=== PATIENT | female | born 1995 | race African-American/Black ===

== ENCOUNTER 2025-05-26 18:11 | Emergency (ER) | payer SELFPAY ==
--- NOTE | 2025-05-26 18:12 | ED.ABDPAIN ---
HPI - Abdominal Pain General Chief Complaint: Abdominal Pain Stated Complaint: Abdominal Pain Time Seen by Provider: 05/26/25 18:22 Source: patient, RN notes reviewed and old records reviewed Mode of arrival: ambulatory Limitations: no limitations History of Present Illness HPI narrative: 29-year-old female presents to the [facility] with lower abdominal pain that has been increasing over the last week. Last menstrual period was April 23. Reports that she has taken 2 home test which she reports is negative. Patient denies any frequency urgency or burning. Has taken Tylenol. Reports that when she eats the pain does increase. Reports nausea without vomiting. Last bowel movement 1 day ago Onset (ago): week(s) (1) Treatments prior to arrival: other (Tylenol) Related Data Home Medications ?Medication ?Instructions ?Recorded ?Confirmed ?Last Taken ?Type No Home Medications 05/26/25 05/26/25 Unknown History Allergies Allergy/AdvReac Type Severity Reaction Status Date / Time No Known Allergies Allergy Verified 05/26/25 18:27 Review of Systems Review of Systems: All systems reviewed & are unremarkable except as noted in HPI and below Constitutional: Constitutional: Reports no additional constitutional complaints ENT: Reports system reviewed and no additional complaints, except as documented Cardiovascular: Cardiovascular: Reports no additional cardiovascular complaints, Denies chest pain and Denies dyspnea Respiratory: Respiratory: Reports no additional respiratory complaints, Denies chest congestion, Denies cough and Denies dyspnea Gastrointestinal: Gastrointestinal: Reports as per HPI, Reports abdominal pain, Reports nausea and Denies vomiting Genitourinary: Genitourinary: Reports no additional female genitourinary complaints Musculoskeletal: Musculoskeletal: Reports no additional musculoskeletal complaints Integumentary/Breasts: Skin/Breast: Reports system reviewed and no additional complaints, except as docu PMFSH Comments At the time of my signature, I reviewed and agree with the nursing past medical, surgical, social, and family history. There is no relevant family history pertinent to the patient complaint. Exam Const: General: cooperative, healthy appearing, comfortable, no acute distress, well developed, alert and well nourished Nutritional Appearance: well nourished Orientation/consciousness: patient oriented x3 Limitations: no limitations HENMT: Head: normal to inspection Mouth: Yes Normal oral and palatal mucosa present, Yes lip normal, Yes tongue normal and Yes moist mucous membranes Eyes: General: appearance normal, both eyes and all related structures Alignment and Position: alignment normal Neck: Neck: normal visual inspection, full ROM, no lymphadenopathy and no meningeal signs Chest: Chest palpation & inspection: normal inspection of the chest Resp: Effort & Inspection: normal respiratory effort and able to speak in complete sentences Auscultation: clear to auscultation bilaterally, no crackles, no rales, no rhonchi and no wheezes Cardio: Rate: regular rate GI: GI Palp: No abdominal tenderness and Yes Soft to palpation Auscultation: normal bowel sounds Skin: General skin exam: normal color and no rashes or lesions noted Neuro: General: patient oriented x3, gait normal, moves all extremities and no meningeal signs Cognition (Neuro): normal cognition Speech: normal speech Gait exam (Neuro): Normal gait present Extrem: General: normal to inspection, full ROM, capillary refill normal and normal gait Psych: Appearance: grossly normal and well kempt Mental Status: mental status grossly normal Speech and movement: Normal speech and movement present and Clear speech present Affect: normal affect Attitude: cooperative Course Course Level of Care: Express Care Visit Vital Signs Vital signs: Vital Signs Temperature 97.2 F L 05/26/25 18:22 Pulse Rate 59 L 05/26/25 18:22 Respiratory Rate 18 05/26/25 18:22 Blood Pressure 111/69 05/26/25 18:22 Pulse Oximetry 100 05/26/25 18:22 Oxygen Delivery Room Air 05/26/25 18:22 Temperature 97.2 F L 05/26/25 18:22 Pulse Rate 59 L 05/26/25 18:22 Respiratory Rate 18 05/26/25 18:22 Blood Pressure 111/69 05/26/25 18:22 Pulse Oximetry 100 05/26/25 18:22 Oxygen Delivery Room Air 05/26/25 18:22 Reviewed Transfer Transfered to: [employer]: Other (POV) Transfer rationale: Patient with lower abdominal pain x1 week, increasing pain. Sending for higher level of care Accepting physician: Dr. Ayers MDM - Abdominal Pain MDM Narrative Medical decision making narrative: Patient sitting in exam room. Patient is nontoxic, vitals are stable. Patient presents with lower abdominal pain increasing over 1 week. Denies urinary symptoms. Discussed doing a urine test, test urine which she declined at this time. Discussed with patient that we are not able to do a complete workup, we do not offer blood work. Transfer instructions reviewed with patient to go directly to the ER. Did not eat or drink until clear by your provider All questions have been answered, and the patient deny any further questions Some parts of this dictation were generated by voice recognition software and may contain typographical and/or grammatical inaccuracies. Differential Diagnosis Differential diagnosis: Likely abdominal pain, acute appendicitis, calculus of kidney, constipation and other () Critical Care Time Critical Care Time Critical Care Time: No Discharge Plan Discharge Clinical Impression: Bilateral lower abdominal pain Patient Disposition: Acute Care Hospital Condition: Stable Patient Language: Mongolian Prescriptions: No Action No Home Medications Follow-up/Referrals: UNKNOWN,DOCTOR [Non-Staff] -
[2025-05-26 18:22] VITALS: BP 111/69; PULSE 59; RESP 18; TEMP 36.2; O2SAT 100
== END 2025-05-26 18:35 | disposition short-term general hospital (02) ==
LOC: EXPCOLL 18:16
PROVIDERS: Emergency Provider Nurse Practitioner
DX: R10.31 Right lower quadrant pain (principal); R10.32 Left lower quadrant pain
CPT/HCPCS: 99202; G0463

== ENCOUNTER 2025-05-26 18:56 | Emergency (ER) | payer SELFPAY ==
--- OUTSIDE RECORDS SUMMARY | 2025-05-26 18:58 | XMS_ITS | Clinical Summary ---
Author Organization [facility] Address [facility] [place] [address] Care Team Providers Care Rn Production Name Role Phone None, Provider MD Primary Care Provider Unavaila ble Allergies No known active allergies Medications naproxen 500 MG tablet Take 1 tablet (500 mg total) by mouth 2 (two) times daily with meals. 30 tablet 05/03/20 21 025 Discontinued ondansetron (ZOFRAN-ODT) 4 MG disintegrating tablet Take 1 tablet (4 mg total) by mouth every 8 (eight) hours as needed. 20 tablet 03/09/20 25 025 Discontinued Encounters Date Type Department Care Team Description 05/24/2025 4:18 PM CDT - 05/24/2025 5:08 PM CDT Hospital Encounter [facility] [address] [place] [address] Sandy Jaffe PA Abdominal Pain Discharge Disposition: Home or Self Care (Routine Discharge) 05/24/2025 Travel 03/09/2025 12:46 PM CDT - 03/09/2025 3:00 PM CDT Emergency [facility] [place] [address] Adelaida Barkley FNP Vomiting Discharge Disposition: Home or Self Care (Routine Discharge) 03/09/2025 Travel from Last 3 Months Family History Medical History Relation Comments Arthritis Mother Hypertension Mother Relation Status Comments Father Alive Mother Alive Social History Tobacco Use Types Packs/Day Years Used Date Smoking Tobacco: Never Passive Smoke Exposure: Never Smokeless Tobacco: Never Tobacco Cessation:Counseling Given: Not Answered Alcohol Use Standard Drinks/Week Comments Not Currently 0 (1 standard drink = 0.6 oz pur e alcohol) AUDIT-C Answer Date Recorded Frequency of Alcohol Consumption Never 04/13/2020 Average Number of Drinks Not on file 020 Frequency of Binge Drinking Not on file 03/17 Comments No Sex and Gender Information Value Date Recorded Sex Assigned at Female 05/24/2025 4:15 PM CDT Legal Sex Female 11:06 AM CDT Gender Identity Not on file Sexual Orientation Not on file Last Filed Vital Signs Vital Sign Reading Time Taken Comments Blood Pressure 119/60 05/24/2025 4:22 PM CDT Pulse 54 05/24/2025 4:22 PM CDT Temperature 36.9 C (98.5 F) 05/24/2025 4:22 PM CDT Respiratory Rate 16 05/24/2025 4:22 PM CDT Oxygen Saturation 100% 05/24/2025 4:22 PM CDT Inhaled Oxygen Concentration - - Weight 72.6 kg (160 lb) 05/24/2025 4:22 PM CDT Height 154.9 cm (5' 1) 05/24/2025 4:22 PM CDT Body Mass Index 30.23 05/24/2025 4:22 PM CDT Plan of Treatment Health Maintenance Due Date Last Done Comments Cervical Cancer Screening Pap Smear (Age 21 to 29) Every 3 Years 1997 Cervical Cancer Screening 1997 Annual Physical 2000 Hepatitis C 2015 DTaP, Tdap and Td Vaccines (7 - Td or Tdap) 05/18/2020 05/18/2010, 06/13/2003, 06/13/2003, Additional history exists COVID-19 Vaccine ( season) 2024 Hepatitis B Vaccines Completed 02/16/1999, 06/15/1998, 1997, Additional history exists HPV Vaccines Completed 12/29/2010, 06/2010, 05/18/2010 Meningococcal Vaccine Completed 07/28/2015, 009 Meningococcal B Vaccine Aged Out No l onger eligible based on patient's age to complete this topic Pneumococcal Vaccine: Pediatrics (0 to 5 Years) and At-Risk Patients (6 to 49 Years) Aged Out No longer eligible based on patient's age to complete this topic RSV Immunizations Under 20 Months Aged Out No longer eligible based on patient's age to complete this topic Procedures Procedure Name Priority Date/Time Associated Diagnosis Comments XR ABD KUB STAT 05/24/2025 4:56 PM CDT CULTURE, GENITAL W/ GRAM STAIN STAT 05/24/2025 4:27 PM CDT URINALYSIS AUTO DIP STAT 05/24/2025 4 :27 PM CDT POCT URINE (BACK OFFICE) STAT 05/24/2025 8:27 AM CDT from Last 3 Months Results * XR ABD KUB (05/24/2025 4:56 PM CDT) Anatomical Region Laterality Modality Abdomen Radiographic Funmi ging 05/24/2025 4:57 PM CDT Impressions 05/24/2025 4:59 PM CDT IMPRESSION: Nonobstructed gas pattern. Referred By: Interpreted By: Edilson Ackerman MD, 05/24/2025 4:57 PM Narrative 05/24/2025 4:59 PM CDT [address] [address] EXAMINATION: XR ABD KUB HISTORY: Pain DATE: 05/24/2025 4:47 PM COMPARISON: None TECHNIQUE: Supine AP view of the abdomen FINDINGS: Nonobstructed gas pattern. Moderate amount stool density noted. No acute osseous abnormality. Procedure Note Edilson Ackerman MD - 05/24/[address] [address] EXAMINATION: XR ABD KUB HISTORY: Pain DATE: 05/24/2025 4:47 PM COMPARISON: None TECHNIQUE: Supine AP view of the abdomen FINDINGS: Nonobstructed gas pattern. Moderate amount stool density noted.No acute osseous abnormality. IMPRESSION: Nonobstructed gas pattern. Referred By: Interpreted By: Edislon Ackerman MD, 05/24/2025 4:57 PM us An Sangita Jaffe [facility] Final Result * (ABNORMAL) URINALYSIS AUTO DIP (05/24/2025 4:27 PM CDT) SPECIMEN TYPE URINE CLEAN CATCH 05/24/2025 4:28 PM CDT [facility] COLOR (U) YELLOW 05/24/2025 4:38 PM CDT [facility] TRANSPARENCY CLOUDY 05/24/2025 4:38 PM CDT [facility] SPECIFIC GRAVITY (U) 1.015 1.001 - 1.030 05/24/2025 4:38 PM CDT [facility] U PH 6.0 5.0 - 9.0 05/24/2025 4:38 PM CDT [facility] LEUKOCYTES (U) SMALL(A) NEGATIVE 05/24/2025 4:38 PM CDT [facility] NITRITES NEGATIVE NEGATIVE 05/24/2025 4:38 PM CDT [facility] PROTEIN RANDOM (U) NEGATIVE <30 MG/DL 05/24/2025 4:38 PM CDT [facility] GLUCOSE (U) NEGATIVE NEGATIVE MG/DL 05/24/2025 4:38 PM CDT [facility] KETONES MG/DL (U) TRACE(A) NEGATIVE MG/DL 05/24/2025 4:38 PM CDT [facility] UROBILINOGEN 1.0(A) NEGATIVE MG/DL 05/24/2025 4:38 PM CDT [facility] BILIRUBIN (U) NEGATIVE NEGATIVE MG/DL 05/24/2025 4:38 PM CDT [facility] BLOOD (U) TRACE(A) NEGATIVE 05/24/2025 4:38 PM CDT [facility] URINE SPECIMEN OBTAINED BY CLEAN CATCH PROCEDURE / Unknown 05/24/2025 4:27 PM CDT us Sandy CAMEJO URINE ORDERABLES Final Result [facility] [place] [address], * POCT urine (05/24/2025 8:27 AM CDT) URINE HCG TEST NEGATIVE Internal Control: VALID 05/24/2025 8:27 AM CDT us Sandy CAMEJO POINT OF CARE TEST ORDERABLES Fi nal Result from Last 3 Months [id number] Care Teams Rn Production Relationship Specialty Start Date End Date None, Provider, PCP - General 09/15/21
--- OUTSIDE RECORDS SUMMARY | 2025-05-26 18:58 | XMS_ITS | Clinical Summary ---
Author Organization [facility] Address [address] [address] Care Team Providers Care Protective Signal Operator Name Role Phone Lee Yu MD Primary Care Provider Unavailab le Source Comments [facility],non-owned Affiliates and Associated Physician Practices is amultiple site organization consisting of ambulatory clinics and hospital sitesin [place], [place], [place] and [place]. This disclosure is being madepursuant to the Care Everywhere program and may not contain all information available regarding this patient. Last updated 18.[facility] [employer] Allergies No known active allergies Medications * Be aware that medications may not be up to date on this document. Alwaysverify current medications with the patient. acetaminophen (Tylenol) 500 MG tablet Take 1 (one) tablet by mouth every 4 hours as needed for Fever or Pain Maximum allowable Acetaminophen amount = 4 Grams (4000 mg) / 24 hours. 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 Gender Identity Not on file Sexual Orientation Not on file Last Filed Vital Signs Vital Sign Reading Time Taken Comments Blood Pressure 123/78 08/31/2022 11:48 PM TARIFF INSPECTOR Pulse 60 08/31/2022 11:48 PM TARIFF INSPECTOR Temperature 36.6 C (97.8 F) 08/31/2022 11:48 PM TARIFF INSPECTOR Respiratory Rate 18 08/31/2022 11:48 PM TARIFF INSPECTOR Oxygen Saturation 98% 08/31/2022 11:48 PM TARIFF INSPECTOR Inhaled Oxygen Concentration - - Weight 63.5 kg (140 lb) 08/31/2022 11:48 PM TARIFF INSPECTOR Height 154.9 cm (5' 1) 08/31/2022 11:48 PM TARIFF INSPECTOR Body Mass Index 26.45 08/31/2022 11:48 PM TARIFF INSPECTOR Plan of Treatment Health Maintenance Due Date Last Done Comments HIV SCREENING 2012 HEPATITIS C SCREENING 10/14/2015 DTAP/TDAP/TD VACCINES (1 - Tdap) 2016 HEPATITIS B VACCINE (1 of 3 - 19+ 3-dose series) 2016 PAP SMEAR 2018 COVID-19 VACCINE (1 - 2023-2 5 season) 2024 DEPRESSION SCREENING 10/16/2024 HPV VACCINE (1 - 3-dose SCDM series) 2024 INFLUENZA VACCINE (#1) 2025 09/30/2009 ZOSTER VACCINE (1 of 2) 2047 HIB VACCINE Aged Out No longer eligi ble based on patient's age to complete this topic MENINGOCOCCAL (Group B) VACC INE SHARED DECISION-MAKING Aged Out No longer eligibl e based on patient's age to complete this topic MENINGOCOCCAL GROUPS A/C/Y/W VACCINE Aged Out No longer eligible b ased on patient's age to complete this topic PNEUMOCOCCAL VACCINE Aged Out No long er eligible based on patient's age to complete this topic Insurance [facility] [place] [address] [place] [address] Care Teams Protective Signal Operator Relationship Specialty Start Date End Date Lee Yu MD [address] [place] [address] PCP - General 08/21/12
--- OUTSIDE RECORDS SUMMARY | 2025-05-26 18:58 | XMS_ITS | Clinical Summary ---
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 Gender Identity Not on file Sexual Orientation Not on file Last Filed Vital Signs Vital Sign Reading Time Taken Comments Blood Pressure 125/71 04/26/2021 7:53 PM CDT Pulse 62 04/26/2021 7:53 PM CDT Temperature 37 C (98.6 F) 04/26/2021 7:53 PM CDT Respiratory Rate 18 04/26/2021 7:53 PM CDT Oxygen Saturation 96% 04/26/2021 7:53 PM CDT Inhaled Oxygen Concentration - - Weight 66.1 kg (145 lb 11.6 oz) 04/26/2021 7:53 PM CDT Height 162.6 cm (5' 4) 04/26/2021 7:53 PM CDT Body Mass Index 25.01 04/26/2021 7:53 PM CDT Plan of Treatment Not on file Insurance [employer] Care Teams Specialty Person Relationship Specialty Start Date End Date No, Physician PCP - General 04/26/21
[2025-05-26 19:09] VITALS: BP 110/67; PULSE 59; RESP 16; TEMP 36.6; O2SAT 100
[2025-05-26 19:31] VITALS: PULSE 58; RESP 18; O2SAT 100
[2025-05-26 19:35] LABS: Hematocrit 42.4 % (37.0-47.0); Hemoglobin 13.6 g/dL (12.0-15.0); Immature Granulocyte Percent A 0.3 % (0-0.5); Lymphocytes Absolute Auto 3.58 K/mm3 (0.9-3.2); Mean Corpuscular HGB Conc 32.1 g/dl (32-36); Mean Corpuscular Hemoglobin 28.3 pg (26-34); Mean Corpuscular Volume 88.3 fl (80-100); Nucleated Red Blood Cells Absolute Auto 0.000 K/mm3 (0.0-0.012); Nucleated Red Blood Cells Perc 0.0 % (0.0-0.2); Platelet Count Result 293 k/mm3 (150-375); Red Blood Count 4.80 M/mm3 (4.2-5.4); White Blood Count 11.3 K/mm3 (4.5-10.0)
--- NOTE | 2025-05-26 19:40 | ED.ABDPAIN ---
HPI - Abdominal Pain General Chief Complaint: Abdominal Pain Stated Complaint: lower abd pain x 1 week Time Seen by Provider: 05/26/25 19:25 History of Present Illness HPI narrative: 29-year-old female with no pertinent past medical history presenting to the emergency department for lower abdominal pain for a week. States that is intermittently worsening but does respond to Tylenol at home. Normal bowel movements, no nauseousness with vomiting. No fever chills. Denies any urinary symptoms. Endorses the symptoms started more so in her left lower abdomen and radiates towards her back. Denies any traumatic injuries. Negative test recently. No dysuria or vaginal symptoms. Related Data Allergies Allergy/AdvReac Type Severity Reaction Status Date / Time No Known Allergies Allergy Verified 05/26/25 18:27 Review of Systems Review of Systems: As reviewed above in HPI Exam Narrative: GENERAL: [Well-appearing, well-nourished, and in no acute distress.] HEAD: [Normocephalic, atraumatic.] EYES: [PERRLA and EOMI.] ENT: Nares clear, no rhinorrhea or epistaxis. Mucous membranes moist. NECK: Supple. CHEST: [Clear to auscultation. No respiratory distress.] HEART: [Regular rate and rhythm]. No murmur heard. [Normal peripheral pulses.] ABDOMEN: [Soft, nondistended], mildly tender in left lower quadrant, [No rigidity or guarding] EXTREMITIES: Normal range of motion. [No edema.] SKIN: Warm, dry, no rash. NEURO: [No focal deficits]. Alert and oriented [x3.] PSYCH: [Normal mood and affect.] Course Vital Signs Vital signs: Vital Signs Temperature 36.6 C 05/26/25 19:09 Pulse Rate 59 L 05/26/25 19:09 Respiratory Rate 16 05/26/25 19:09 Blood Pressure 110/67 05/26/25 19:09 Pulse Oximetry 100 05/26/25 19:09 Oxygen Delivery Room Air 05/26/25 19:09 Temperature 36.6 C 05/26/25 19:09 Pulse Rate 58 L 05/26/25 19:31 Respiratory Rate 18 05/26/25 19:31 Blood Pressure 110/67 05/26/25 19:09 Pulse Oximetry 100 05/26/25 19:31 Oxygen Delivery Room Air 05/26/25 19:31 MDM - Abdominal Pain MDM Narrative Medical decision making narrative: 29-year-old female with no pertinent past medical history presenting to the emergency department for lower abdominal pain for a week. States that is intermittently worsening but does respond to Tylenol at home. Normal bowel movements, no nauseousness with vomiting. No fever chills. Denies any urinary symptoms. Endorses the symptoms started more so in her left lower abdomen and radiates towards her back. Denies any traumatic injuries. Negative test recently. No dysuria or vaginal symptoms. Patient has reassuring set of vitals, otherwise well-appearing not any acute distress and afebrile. Minimal tenderness in left lower quadrant. Laboratory studies will be obtained including CBC, CMP, lipase and urinalysis. test ordered. Differential includes gastroenteritis, kidney stone, intra-abdominal infection or abscess, UTI, pyelonephritis, less likely ovarian pathology. Patient's workup shows a minor leukocytosis 11.3 but normal kidney and liver function. Normal lipase. Urinalysis shows signs of urinary tract infection. Patient re-evaluated and did admit that she is having some frothy bubbling in her urine recently but no dysuria. Symptoms consistent with urinary tract infection. She was started on Keflex and sent home with a prescription. Return precautions described in follow-up instructions given. Medical Records Attestation: I reviewed the patient's medical records. Lab Data Attestation: I reviewed the patient's lab results. 05/26/25 19:29 05/26/25 19:29 Labs: Lab Results 05/26/25 05/26/25 Range/Units 19:29 19:31 WBC 11.3 H (4.5-10.0) K/mm3 RBC 4.80 (4.2-5.4) M/mm3 Hgb 13.6 (12.0-15.0) g/dL Hct 42.4 (37.0-47.0) % MCV 88.3 (80-100) fl MCH 28.3 (26-34) pg MCHC 32.1 (32-36) g/dl RDW 12.4 (11.5-14.5) % Plt Count 293 (150-375) k/mm3 MPV 11.0 H (7.4-10.4) fl Immature Gran % (Auto) 0.3 (0-0.5) % Neut % (Auto) 60.5 (45.5-73.1) % Lymph % (Auto) 31.6 (18.3-44.2) % Garza % (Auto) 6.6 (2.6-8.5) % Eos % (Auto) 0.6 (0-4.4) % Baso % (Auto) 0.4 (0.2-1.2) % Lymph # (Auto) 3.58 H (0.9-3.2) K/mm3 Garza # (Auto) 0.8 H (0.1-0.6) K/mm3 Eos # (Auto) 0.1 (0-0.3) K/mm3 Baso # (Auto) 0.0 (0.0-0.1) K/mm3 Abs Immat Gran (auto) 0.03 (0.00-0.031) K/mm3 Absolute Neuts (auto) 6.9 H (1.3-6.7) K/mm3 Absolute Nucleated RBC 0.000 (0.0-0.012) K/mm3 Nucleated RBC % 0.0 (0.0-0.2) % Sodium 136 L (137-145) mmol/L Potassium 3.7 (3.4-5.0) mmol/L Chloride 104 (98-107) mmol/L Carbon Dioxide 25 (22-30) mmol/L Anion Gap 7 (4-12) mmol/L BUN 9 (7-17) mg/dL Creatinine 0.75 (0.7-1.0) mg/dL Estim Creat Clear Calc 91 ml/min Estimated GFR > 60 (59 - ) Glucose 111 H (65-110) mg/dL Calcium 9.0 (8.4-10.2) mg/dL Total Bilirubin 0.4 (0.2-1.3) mg/dL AST 25 (14-36) U/L ALT 13 (6-35) U/L Alkaline Phosphatase 60 (38-126) U/L Total Protein 8.4 H (6.3-8.2) g/dL Albumin 4.5 (3.5-5.1) g/dL Lipase 156 (23-300) U/L Urine Color Yellow (Yellow) Urine Appearance Clear (Clear) Urine pH 7.0 (5.0-9.0) Ur Specific [place] 1.016 (1.001-1.035) Urine Protein Negative (Negative) mg/dL Urine Glucose (UA) Negative (Negative) mg/dL Urine Ketones Negative (Negative) mg/dL Ur Blood (Man) Negative (Negative) Urine Nitrate Negative (Negative) Urine Bilirubin Negative (Negative) Urine Urobilinogen 1.0 (<2.0) mg/dL Leukocyte Esterase Rfl 2+ H (Negative) CHRISTEN/UL Urine RBC 0-2 (0-2) /hpf Urine WBC 11-20 H (0-3) /hpf Ur Squamous Epith Cells Few (Few) /hpf Urine Bacteria None seen /hpf Urine Casts 0-2 POC Urine HCG, Qual Negative (Negative) Discharge Plan Discharge Clinical Impression: Urinary tract infection Patient Disposition: Home Condition: Stable Instructions: Antibiotic Form, Urinary Tract Infection in Women (DC) Additional Instructions: Symptoms consistent with urinary tract infection. Take the antibiotic twice daily for the next 5 days. He can take Tylenol and ibuprofen for aches and pains. Return with any emergent concerns otherwise follow-up with regular doctors. Patient Language: Comoran Prescriptions: New cephalexin 500 mg capsule 500 mg PO Q12H 5 Days Qty: 10 0RF Follow-up/Referrals: PHYSICIAN,ROPEWALK ROPE MAKER [Primary Care Provider] - Time of Disposition: 22:03
[2025-05-26 19:41] LABS: BEDSIDEPREGUCG Negative (Negative)
--- OUTSIDE RECORDS SUMMARY | 2025-05-26 19:47 | XMS_ITS | Clinical Summary ---
Author Organization [facility] Address [address] [place] [address] Care Team Providers Care General Lot Attendant Name Role Phone Lee Yu MD Primary Care Provider Unavailab le Source Comments [facility],non-owned Affiliates and Associated Physician Practices is amultiple site organization consisting of ambulatory clinics and hospital sitesin [place], [place], [place] and [place]. This disclosure is being madepursuant to the Care Everywhere program and may not contain all information available regarding this patient. Last updated 18.[facility] [employer] Allergies No known active allergies Medications * [...] on file Legal Sex Female 2:12 PM ELECTRIC MOTOR REPAIR SUPERVISOR Gender Identity Not on file Sexual Orientation Not on file Last Filed Vital Signs Vital Sign Reading Time Taken Comments Blood Pressure 123/78 08/31/2022 11:48 PM ELECTRIC MOTOR REPAIR SUPERVISOR Pulse 60 08/31/2022 11:48 PM ELECTRIC MOTOR REPAIR SUPERVISOR Temperature 36.6 C (97.8 F) 08/31/2022 11:48 PM ELECTRIC MOTOR REPAIR SUPERVISOR Respiratory Rate 18 08/31/2022 11:48 PM ELECTRIC MOTOR REPAIR SUPERVISOR Oxygen Saturation 98% 08/31/2022 11:48 PM ELECTRIC MOTOR REPAIR SUPERVISOR Inhaled Oxygen Concentration - - Weight 63.5 kg (140 lb) 08/31/2022 11:48 PM ELECTRIC MOTOR REPAIR SUPERVISOR Height 154.9 cm (5' 1) 08/31/2022 11:48 PM ELECTRIC MOTOR REPAIR SUPERVISOR Body Mass Index 26.45 08/31/2022 11:48 PM ELECTRIC MOTOR REPAIR SUPERVISOR Plan of Treatment Health Maintenance Due Date [...] patient's age to complete this topic Insurance [facility] [place] [address] [address] [address] Care Teams General Lot Attendant Relationship Specialty Start Date End Date Lee Yu MD [address] [place] [address] PCP - General 08/21/12
--- OUTSIDE RECORDS SUMMARY | 2025-05-26 19:47 | XMS_ITS | Clinical Summary ---
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
--- OUTSIDE RECORDS SUMMARY | 2025-05-26 19:47 | XMS_ITS | Clinical Summary ---
Author Organization [facility] Address [facility] [place] [address] Care Team Providers Care Window Unit Air Conditioning Mechanic Name Role Phone None, Provider MD Primary [...] - 05/24/2025 5:08 PM CDT Hospital Encounter [facility] Care [address] [place] [address] Sandy Jaffe PA Abdominal Pain Discharge Disposition: Home or Self Care (Routine Discharge) 05/24/2025 Travel 03/09/2025 12:46 PM CDT - 03/09/2025 3:00 PM CDT Emergency [facility] [place] [address] Adelaida Barkley FNP Vomiting Discharge Disposition: Home [...] 4:57 PM Narrative 05/24/2025 4:59 PM CDT [address] [address] EXAMINATION: XR ABD KUB HISTORY: Pain DATE: 05/24/2025 4:47 PM COMPARISON: None TECHNIQUE: Supine AP view of the abdomen FINDINGS: Nonobstructed gas pattern. Moderate amount stool density noted. No acute osseous abnormality. Procedure Note Edilson Ackerman MD - 05/24/[address] [address] EXAMINATION: XR ABD KUB HISTORY: Pain DATE: 05/24/2025 4:47 PM COMPARISON: None TECHNIQUE: Supine AP view of the abdomen FINDINGS: Nonobstructed gas pattern. Moderate amount stool density noted.No acute osseous abnormality. IMPRESSION: Nonobstructed gas pattern. Referred By: Interpreted By: Edilson Ackerman MD, 05/24/2025 4:57 PM us An Sangita Jaffe [place] GENERAL [facility] Final Result * (ABNORMAL) URINALYSIS AUTO DIP (05/24/2025 4:27 PM CDT) SPECIMEN TYPE URINE CLEAN CATCH 05/24/2025 4:28 PM CDT [facility] CONVENIENT CARE COLOR (U) YELLOW 05/24/2025 4:38 PM CDT [facility] CONVENIENT CARE TRANSPARENCY CLOUDY 05/24/2025 4:38 PM CDT [facility] CONVENIENT [facility]ARE SPECIFIC GRAVITY (U) 1.015 1.001 - 1.030 05/24/2025 4:38 PM CDT [facility] CON[facility]IENT [facility] U PH 6.0 5.0 - 9.0 05/24/2025 4:38 PM CDT [facility] LEUKOCYTES (U) SMALL(A) NEGATIVE 05/24/2025 4:38 PM CDT [facility] NITRITES NEGATIVE NEGATIVE 05/24/2025 4:38 PM CDT [facility] PROTEIN RANDOM (U) NEGATIVE <30 MG/DL 05/24/2025 4:38 PM CDT [facility]IENT [facility]ARE GLUCOSE (U) NEGATIVE NEGATIVE MG/DL 05/24/2025 4:38 PM CDT [facility] CONVENIENT [facility]ARE KETONES MG/DL (U) TRACE(A) NEGATIVE MG/DL 05/24/2025 4:38 PM CDT [facility] UROBILINOGEN 1.0(A) NEGATIVE MG/DL 05/24/2025 4:38 PM CDT [facility] CONVENIENT [facility]ARE BILIRUBIN (U) NEGATIVE NEGATIVE MG/DL 05/24/2025 4:38 PM CDT [facility] CARE BLOOD (U) TRACE(A) NEGATIVE 05/24/2025 4:38 PM CDT [facility] CARE URINE SPECIMEN OBTAINED BY CLEAN CATCH PROCEDURE / Unknown 05/24/2025 4:27 PM CDT us Sandy CAMEJO URINE ORDERABLES Final Result [facility] CARE [facility] [place] [address], * POCT urine (05/24/2025 8:27 AM CDT) URINE HCG TEST NEGATIVE Internal Control: VALID 05/24/2025 8:27 AM CDT us Sandy CAMEJO POINT OF CARE TEST ORDERABLES Fi nal Result from Last 3 Months Insurance [id number] Care Teams Window Unit Air Conditioning Mechanic Relationship Specialty Start Date End Date None, Provider, PCP - General 09/15/21
[2025-05-26 19:52] LABS: Add Urine Microscopic? YES; Appearance Urine Clear (Clear); Glucose Urine UA Negative (Negative); Leukocyte Esterase Ur 2+ LEU/UL (Negative); Nitrate Urine Negative (Negative); Non Pathogenic Casts 0-2; Specific Grav Ur 1.016 (1.001-1.035)
[2025-05-26 19:53] LABS: Alanine Aminotransferase 13 U/L (6-35); Albumin Level 4.5 g/dL (3.5-5.1); Alkaline Phosphatase 60 U/L (38-126); Anion Gap 7 mmol/L (4-12); Aspartate Amino Transferase 25 U/L (14-36); Bilirubin,Total 0.4 mg/dL (0.2-1.3); Blood Urea Nitrogen 9 mg/dL (7-17); Calcium 9.0 mg/dL (8.4-10.2); Carbon Dioxide 25 mmol/L (22-30); Chloride 104 mmol/L (98-107); Estimated CRCL calculation 91 ml/min; Estimated Glomerular Filt Rate > 60; Glucose 111 mg/dL (65-110); Lipase 156 U/L (23-300); Potassium 3.7 mmol/L (3.4-5.0); Sodium 136 mmol/L (137-145); Total Protein 8.4 g/dL (6.3-8.2)
[2025-05-26] MEDS: CEPHALEXIN 500 MG CAPSULE PO (22:14)
[2025-05-26 22:28] VITALS: BP 120/83; PULSE 55; RESP 16; TEMP 36.9; O2SAT 100
== END 2025-05-26 22:22 | disposition home or self-care (01) ==
PROVIDERS: Emergency Provider Student in an Organized Health Care Education/Training Program
DX: N39.0 Urinary tract infection, site not specified (principal)
CPT/HCPCS: 36415; 80053; 81001; 81025; 83690; 85025; 87086; 99283; A9270